=== PATIENT | female | born 1940 | race Caucasian/White ===

== ENCOUNTER 2021-10-24 11:00 | Emergency (ER) | payer MEDICARE, SELFPAY ==
[2021-10-24 11:08] VITALS: BP 113/59; PULSE 90; RESP 20; TEMP 36.2; O2SAT 97; BMI 39.3
--- NOTE | 2021-10-24 11:16 | DI.RAD.S_ITS ---
PROCEDURE: XR KNEE RT 3V INDICATIONS: pain TECHNIQUE: 3 views of the knee were acquired. COMPARISON: None. FINDINGS: Bones: Total knee arthroplasty. No fractures or dislocations. No suspicious bony lesions. Soft tissues: Moderate joint effusion. Vascular calcifications consistent with atherosclerosis. IMPRESSION: 1. No acute osseous abnormalities. 2. Total knee arthroplasty. 3. Moderate knee joint effusion. 4. Severe atherosclerosis. Dictated by: Jarocho Tee M.D. on 10/24/2021 at 12:29 Approved by: Jarocho Tee M.D. on 10/24/2021 at 12:30
--- NOTE | 2021-10-24 13:53 | DI.US.S_ITS ---
PROCEDURE: US PERIPH VENOUS LOW EXTREM RT INDICATIONS: C/F dvt, HX a fib, DVT left leg TECHNIQUE: Real-time imaging, as well as color and pulse Doppler interrogation, were performed of the lower extremity deep veins from the inguinal ligament to the popliteal fossa. COMPARISON: None. FINDINGS: The common femoral, femoral and popliteal veins are normally compressible, and free of intraluminal thrombus. The right femoral vein appears narrowed, however. Color and pulse Doppler demonstrate normal phasic intraluminal flow. There is normal augmentation response to distal compression maneuver. This study is limited by body habitus. IMPRESSION: Limited study demonstrating no gianluca findings of right lower extremity deep venous thrombosis. Dictated by: Marques Ames M.D. on 10/24/2021 at 14:14 Approved by: Marques Ames M.D. on 10/24/2021 at 14:15
--- NOTE | 2021-10-24 14:08 | ED_ITS ---
HPI - Extremity Problem <Alannah Oliverio Goss [facility] - Last Filed: 10/24/21 19:10> General Chief complaint: Extremity Problem,Nontraumatic Stated complaint: Right leg, pain, can't stand Time Seen by Provider: 10/24/21 13:39 Source: patient and other Mode of arrival: Family Vehicle History of Present Illness HPI Narrative: This is an 80-year-old female with history of atrial fibrillation, CHF, diabetes, lymphoma, obesity, hypertension who is not on anticoagulants and presents to the emergency department for worsening right leg pain which started yesterday. Patient states that she can barely bear any weight on her leg because it is so painful. She endorses her lower extremities are swollen at baseline her left is typically greater than right, she has weeping edema in her left lower extremity, her skin is taut, edematous and pitting in her lower extremities. She denies any open wounds, she denies any recent fever, fatigue, erythema or tender area. Patient states that her whole right leg is painful when she bears weight or attempts to walk on it starting in her mid thigh above her knee. Patient endorses a history bilateral knee pain. She denies any sensation of imbalance or unstable joint. She is insulin-dependent diabetic, states that she typically takes bumetanide for her swelling in her legs. States that she used to see [facility] air [facility] and she is pending her [address]. Rios on November 24. She states that she takes a baby aspirin daily, she goes to [facility] in [place] for prescriptions. She states that her pain is why she came in today and she denies any shortness of breath, chest pain, palpitations, orthopnea, or significant shortness of breath with exertion. Related Data Home Medications Medication Instructions Recorded Confirmed aspirin 81 mg tablet,delayed 81 mg PO QAM 10/24/21 10/24/21 release (Adult Low Dose Aspirin) bumetanide 2 mg tablet 2 mg PO TID 10/24/21 10/24/21 calcitriol 0.25 mcg capsule 0.25 mcg PO QAM 10/24/21 10/24/21 fluoxetine 20 mg capsule 20 mg PO BID 10/24/21 10/24/21 insulin NPH isoph U-100 human 100 20 unit SUBCUT BID 10/24/21 10/24/21 unit/mL (3 mL) subcutaneous pen (Novolin N Flexpen) metoprolol tartrate 100 mg tablet 100 mg PO BID 10/24/21 10/24/21 tramadol 50 mg tablet 50 mg PO BID PRN Pain (Scale Score 10/24/21 10/24/21 7-10) Previous Rx's Medication Instructions Recorded diclofenac sodium 1 % topical gel 4 g topical QID #100 grams 10/24/21 mupirocin 2 % topical ointment 1 applic topical BID PRN open 10/24/21 areas of skin #15 grams Allergies Allergy/AdvReac Type Severity Reaction Status Date / Time morphine Allergy Rash Verified 10/24/21 11:14 Review of Systems <YING Huitron - Last Filed: 10/24/21 19:10> Review of Systems Narrative: General: denies fever, chills, fatigue or recent illness Head/Neck: denies headache, neck pain Eyes: denies visual changes, eye pain Cardio: denies chest pain, palpitations, endorses lower extremity edema left greater than right but states is chronic. Respiratory: denies shortness of breath, cough GI: denies abdominal pain, nausea, vomiting, or diarrhea : denies dysuria, hematuria or flank pain MSK: denies new joint pain, muscle weakness or swelling Skin: denies rash, itching or wound Neuro: Endorses numbness and tingling in her toes which is new for her, Patient History <YING Huitron - Last Filed: 10/24/21 19:10> Medical History Afib CHF (congestive heart failure) Diabetes DVT (deep venous thrombosis) Lymphoma Social History Smoking Status: Former smoker Smoking Status: Former smoker tobacco type: cigarettes alcohol intake frequency: 0-2 drinks per day Substance Use Type: does not use Exam <YING Huitron - Last Filed: 10/24/21 19:10> Narrative Exam Narrative: Independently reviewed vitals signs and nursing notes. General: cooperative, comfortable, in no acute distress, well groomed, obese, lower extremities are elevated being is present at the left lower extremity Head: atraumatic, symmetrical facial expressions Neck: supple Eyes: equal round and reactive, EOMI, conjunctiva normal Nose: nares patent, no rhinorrhea Mouth/Throat: moist mucus membranes Cardiovascular: regular rate and rhythm, significant edema in her bilateral lower extremities without any erythema, warm extremities PT and DP pulses are palpable in bilateral feet with brisk cap refill Respiratory: normal effort, able to speak in complete sentences, no audible wheezing, stridor, or rales. No retractions or tachypnea. GI: abdomen soft, nontender to palpation, nondistended, no masses, no exquisite tenderness with exam, without guarding or rebound. MSK: moves all extremities, neurovascularly intact, no weakness, normal tone, edematous lower extremities, right knee pain with ambulation and bearing weight. No tenderness over MCL or LCL, no visible signs of trauma. Skin: brisk capillary refill, no rash, no erythema, pitting edema in bilateral lower extremities, weeping out of abrasion to the left harrington. Neuro: normal speech and cognition, A&O x3 Psych: mental status is grossly normal, congruent mood, normal affect, pleasant and cooperative Initial Vital Signs Initial Vital Signs: Vital Signs Temperature 97.1 F L 10/24/21 11:08 Pulse Rate 90 10/24/21 11:08 Respiratory Rate 20 10/24/21 11:08 Blood Pressure 113/59 L 10/24/21 11:08 Pulse Oximetry 97 10/24/21 11:08 Oxygen Delivery Method 10/24/21 11:08 <Katina Marquez DO - Last Filed: 10/30/21 21:42> Initial Vital Signs Initial Vital Signs: Vital Signs Temperature 97.1 F L 10/24/21 11:08 Pulse Rate 90 10/24/21 11:08 Respiratory Rate 20 10/24/21 11:08 Blood Pressure 113/59 L 10/24/21 11:08 Pulse Oximetry 97 10/24/21 11:08 Oxygen Delivery Method 10/24/21 11:08 Course <YING Huitron - Last Filed: 10/24/21 19:10> Orders Ordered: Discontinued Medications Tramadol HCl (Tramadol 50 Mg Tablet) 50 mg PO NOW ONE Stop: 10/24/21 14:58 Last Admin: 10/24/21 15:34 Dose: 50 mg Documented By: AUDIE Vital Signs Vital signs: Vital Signs - 8 hr 10/24/21 11:08 10/24/21 16:34 10/24/21 15:00 Temperature 97.1 F L Pulse Rate 90 78 Pulse Rate [Bilateral Dorsalis Pedis] 77 Respiratory Rate 20 18 Blood Pressure 113/59 L 146/78 H Pulse Oximetry 97 98 Oxygen Delivery Method Room Air Room Air <Katina Marquez DO - Last Filed: 10/30/21 21:42> Orders Ordered: Discontinued Medications Tramadol HCl (Tramadol 50 Mg Tablet) 50 mg PO NOW ONE Stop: 10/24/21 14:58 Last Admin: 10/24/21 15:34 Dose: 50 mg Documented By: AUDIE Vital Signs Vital signs: Vital Signs - 8 hr 10/24/21 11:08 10/24/21 16:34 10/24/21 15:00 Temperature 97.1 F L Pulse Rate 90 78 Pulse Rate [Bilateral Dorsalis Pedis] 77 Respiratory Rate 20 18 Blood Pressure 113/59 L 146/78 H Pulse Oximetry 97 98 Oxygen Delivery Method Room Air Room Air MDM - Extremity (Nontraumatic) <YING Huitron - Last Filed: 10/24/21 19:10> Lab Data Result diagrams: 10/24/21 15:40 10/24/21 15:40 Labs: Lab Results 10/24/21 10/24/21 10/24/21 Range/Units 15:40 15:40 15:40 WBC 7.1 (4.5-11.0) X10^3/uL RBC 3.91 L (4.0-5.2) X10^6/uL Hgb 12.4 (12.0-16.0) g/dL Hct 36.3 (36-46) % MCV 92.8 (80-100) fL MCH 31.6 (26-34) PG MCHC 34.1 (30-36) % RDW 13.2 (11.6-14.8) % Plt Count 185 (150-400) X10^3/uL Neut % (Auto) 68.1 (50-75) % Lymph % (Auto) 20.3 L (25-40) % Eddy % (Auto) 7.7 (3-14) % Eos % (Auto) 3.1 (2-4) % Baso % (Auto) 0.8 (0-2) % Neut # (Auto) 4800 (6703-8236) /uL Lymph # (Auto) 1400 (0702-1673) /uL Eddy # (Auto) 500 (0-900) /uL Eos # (Auto) 200 (0-450) /uL Baso # (Auto) 100 (0-100) /uL PT 12.7 (10.1-12.7) SECONDS INR 1.1 (0.9-1.3) D-Dimer 462 H (<230) ng/mL Sodium 134 L (137-145) mmol/L Potassium 4.5 (3.4-5.1) mmol/L Chloride 98 (98-107) mmol/L Carbon Dioxide 30 (22-32) mmol/L BUN 25 H (7-17) mg/dL Creatinine 1.37 H (0.52-1.04) mg/dL Estimated GFR 39 L (>60) mL/min BUN/Creatinine Ratio 18.2 (6-22) Glucose 252 H (80-110) mg/dL Calcium 9.0 (8.4-10.2) mg/dL Total Bilirubin 0.6 (0.2-1.3) mg/dL AST 25 (14-36) IU/L ALT 18 (<35) IU/L Alkaline Phosphatase 116 (38-126) U/L NT-Pro-B Natriuret Pep 1800 H (<450) pg/mL Total Protein 6.3 (6.3-8.2) g/dL Albumin 3.8 (3.5-5.0) g/dL Globulin 2.5 (1.7-4.1) g/dL Albumin/Globulin Ratio 1.5 (1.0-2.8) Procalcitonin 0.05 (<0.5) ng/mL Imaging Data Extremity x-ray #1: Radiologist's Impression: PROCEDURE:? XR KNEE RT 3V ? INDICATIONS:? pain ? TECHNIQUE:? 3 views of the knee were acquired.? ? COMPARISON:? None. ? FINDINGS:? ? Bones:? Total knee arthroplasty.? No fractures or dislocations.? No suspicious bony lesions.? ? Soft tissues:? Moderate joint effusion.? Vascular calcifications consistent with atherosclerosis.? ? ? IMPRESSION:? ? 1. No acute osseous abnormalities. 2. Total knee arthroplasty. 3. Moderate knee joint effusion. 4. Severe atherosclerosis.? ? Dictated by: Jarocho Tee M.D. on 10/24/2021 at 12:29 ? ? Approved by: Jarocho Tee M.D. on 10/24/2021 at 12:30 ? US - DVT: Radiologist's Impression: PROCEDURE:? US PERIPH VENOUS LOW EXTREM RT ? INDICATIONS:? C/F dvt, HX a fib, DVT left leg ? TECHNIQUE:? Real-time imaging, as well as color and pulse Doppler interrogation, were performed of the lower extremity deep veins from the inguinal ligament to the popliteal fossa.? ? COMPARISON:? None. ? FINDINGS:? The common femoral, femoral and popliteal veins are normally compressible, and free of intraluminal thrombus.? The right femoral vein appears narrowed, however.? Color and pulse Doppler demonstrate normal phasic intraluminal flow.? There is normal augmentation response to distal compression maneuver.? ? This study is limited by body habitus. ?? IMPRESSION:? Limited study demonstrating no gianluca findings of right lower ex tremity deep venous thrombosis. ?? Dictated by: Marques Ames M.D. on 10/24/2021 at 14:14 ? ? Approved by: Marques Ames M.D. on 10/24/2021 at 14:15 ? ECG Data Interpretation: EKG independently reviewed by Dr. Marquez and reveals atrial fibrillation at 75 bpm with leftward axis and normal intervals. No STEMI, ST segment changes, arrhythmia, or acute ischemic changes. MDM Narrative Medical decision making narrative: This is an 80-year-old female with past history of CHF, atrial fibrillation, prior DVT in left upper leg, she is not anticoagulated, history also includes lymphoma, hypertension, diabetes type 2 and is insulin dependent morbid obesity, who presents to the emergency department complaining of right leg pain worsening over the last two days. She has a history of bilateral lower extremity edema, she does not have any prior labs within our system to review, she states she is pending a new patient appointment with Dr. Fairchild November 24 and her previous provider Dr Gama is no longer seeing patients. Patient takes baby aspirin daily, bumetanide, fluoxetine, NPH insulin, metoprolol, and tramadol for her pain. States that tramadol is not adequate for her pain but she states she is allergic to all opioids and other medications. Patient is concerned about a possible blood clot. States that she has a history of osteoarthritis. Initially, nursing placed an order for right knee x-ray, this shows no acute osseous abnormalities, total knee arthroplasty, moderate knee joint effusion, and severe atherosclerosis. A vascular ultrasound was ordered, it took a long time for this to be completed but eventually was and did not show any gianluca findings of right lower extremity deep venous thrombosis. She has significant edema of her bilateral lower extremities so there is body habitus study limitations. Patient had concerning swelling on exam, she did not come in for a CHF exacerbation and denies any shortness of breath, palpitations, chest pain, pleurisy, orthopnea, shortness of breath with exertion but she states her bilateral lower extremities are more swollen than usual, and her pain is diffuse in her right lower extremity. I opted to do lab work for her since her primary care appointment is not for one more month, and she does not have any lab work in the system. Patient wishes to discharge home prior to resulting lab work, discussed that there may be important. Patient states understanding. When her lab work resulted, pertinent findings are: No leukocytosis or anemia, her D- dimer is 462. And is not clinically significant when age corrected. Age-Adjusted D-dimer for Venous Thromboembolism (VTE) from [email or web address] on 10/24/2021 All calculations should be rechecked by clinician prior to use RESULT SUMMARY: 820 ?g/L Age-adjusted D-dimer cutoff, FEU VTE unlikely Reported D-dimer is less than or equal to cutoff; consider alternative diagnosis INPUTS: Age ?> 80 years D-dimer level reported by lab ?> 462 ?g/L D-dimer unit type ?> 1 = FEU (unadjusted cutoff typically ~500 or 0.50) Sodium is 134, she does not have any neuro deficits on my exam, her creatinine is elevated at 1.37, BUN is 25, GFR is 39, glucose is elevated at 252 but she is diabetic and she has been in the emergency department for at least 6 hours. Her BNP came back elevated at 1800, this is likely part of why her lower extremities are edematous. Procalcitonin is 0.05, she did not have any significant erythema over bilateral lower extremities, no signs of cellulitis, no open wounds but she does have a small abrasion on the left harrington that is weeping. Does not have any surrounding erythema or purulence discharge. I encouraged patient to call the primary care office and follow-up with her primary care provider and ask for a sooner appointment due to the swelling in her lower extremities. She had not taken her diuretic today, encouraged her to go home and ensure that she gets her three doses of that and to return to the emergency department if she gets any worse or get a sooner appointment at her primary care office. It is notable that her creatinine is elevated, her BNP is elevated, she has an effusion of her right knee joint and worsening right leg pain. I gave her contact information for [facility] so she can follow-up regarding her right knee pain, encouraged her to use an Eusebio bandage for her right knee, her body habitus prevents right knee immobilizer working very effectively, I did encourage and compression stockings for lower extremities to help mitigate some of this edema and frequent elevation of her lower extremities. I gave her a prescription for diclofenac gel for topical application to her right knee, she states that Tylenol is helpful for her pain at home in addition to the tramadol and encouraged her to continue taking the same regimen. This is likely a CHF exa cerbation but she does shortness of breath tachypnea or tachycardia, she is currently in atrial fibrillation per EKG with left axis deviation but no ST changes. <Katina Marquez, - Last Filed: 10/30/21 21:42> Lab Data Labs: Lab Results 10/24/21 10/24/21 10/24/21 Range/Units 15:40 15:40 15:40 WBC 7.1 (4.5-11.0) X10^3/uL RBC 3.91 L (4.0-5.2) X10^6/uL Hgb 12.4 (12.0-16.0) g/dL Hct 36.3 (36-46) % MCV 92.8 (80-100) fL MCH 31.6 (26-34) PG MCHC 34.1 (30-36) % RDW 13.2 (11.6-14.8) % Plt Count 185 (150-400) X10^3/uL Neut % (Auto) 68.1 (50-75) % Lymph % (Auto) 20.3 L (25-40) % Eddy % (Auto) 7.7 (3-14) % Eos % (Auto) 3.1 (2-4) % Baso % (Auto) 0.8 (0-2) % Neut # (Auto) 4800 (0579-0908) /uL Lymph # (Auto) 1400 (8771-0178) /uL Eddy # (Auto) 500 (0-900) /uL Eos # (Auto) 200 (0-450) /uL Baso # (Auto) 100 (0-100) /uL PT 12.7 (10.1-12.7) SECONDS INR 1.1 (0.9-1.3) D-Dimer 462 H (<230) ng/mL Sodium 134 L (137-145) mmol/L Potassium 4.5 (3.4-5.1) mmol/L Chloride 98 (98-107) mmol/L Carbon Dioxide 30 (22-32) mmol/L BUN 25 H (7-17) mg/dL Creatinine 1.37 H (0.52-1.04) mg/dL Estimated GFR 39 L (>60) mL/min BUN/Creatinine Ratio 18.2 (6-22) Glucose 252 H (80-110) mg/dL Calcium 9.0 (8.4-10.2) mg/dL Total Bilirubin 0.6 (0.2-1.3) mg/dL AST 25 (14-36) IU/L ALT 18 (<35) IU/L Alkaline Phosphatase 116 (38-126) U/L NT-Pro-B Natriuret Pep 1800 H (<450) pg/mL Total Protein 6.3 (6.3-8.2) g/dL Albumin 3.8 (3.5-5.0) g/dL Globulin 2.5 (1.7-4.1) g/dL Albumin/Globulin Ratio 1.5 (1.0-2.8) Procalcitonin 0.05 (<0.5) ng/mL Discharge Plan Departure Patient Disposition: Home Clinical Impression: Bilateral edema of lower extremity, Effusion of knee joint right, Elevated brain natriuretic peptide (BNP) level, Creatinine elevation Instructions: Heart Failure, DI for Knee Effusion, Edema Activity Restrictions/Additional Instructions: *You have been diagnosed with significant lower extremity edema which is concerning for a CHF exacerbation. Please call Dr. Oneill's doctor's office and ask if you can move your appointment up for follow-up from your ER visit today. I will call you later today if your lab work is concerning for something you need to make a change on at home. Please continue taking your diuretic, do not forget any doses of this, please ensure that you get your full three doses today. Stay hydrated, elevate your lower extremities often, wear compression stockings as tolerated, you may wrap your knee with a thick Eusebio bandage to help provide some stability while walking. Please follow-up with your doctor as soon as you are able, return to the emergency department if your condition gets any worse or if you develop shortness of breath, difficulty breathing, chest pain or palpitations. *What to do: *Please continue to take your regular medications as directed. [x ] New medication prescriptions sent to your pharmacy: [[facility] ] [ ] New medication written as a paper prescription [ ] No new medications given *Please follow up with your primary care provider in 2-3 days, call for an appointment. Let them know you were seen in the Emergency Department and that we asked that you be seen for follow-up. We will electronically transmit a record of today's note if your PCP is in our system *If you do not have a primary care provider please contact [phone] to establish care with one of [facility] primary care providers. *Return to Emergency Department if you should have any new, worsening or conc erning symptoms, such as [fever greater than 101F, chills, worsening pain, persistent vomiting or other bothersome symptoms] Prescriptions: New diclofenac sodium 1 % gel 4 g topical QID Qty: 100 0RF Rx Instructions: Apply to area of pain up to 4 times daily mupirocin 2 % ointment 1 applic topical BID PRN (Reason: open areas of skin) Qty: 15 0RF No Action bumetanide 2 mg tablet 2 mg PO TID Label Comments: Take 3 metoprolol tartrate 100 mg tablet 100 mg PO BID Label Comments: Take 1 tablet by mouth twice a day aspirin [Adult Low Dose Aspirin] 81 mg tablet,delayed release (DR/EC) 81 mg PO QAM fluoxetine 20 mg capsule 20 mg PO BID Label Comments: Pt states she takes 1 tab bid calcitriol 0.25 mcg capsule 0.25 mcg PO QAM Novolin N Flexpen 100 unit/mL (3 mL) insulin pen 20 unit SUBCUT BID tramadol 50 mg tablet 50 mg PO BID PRN (Reason: Pain (Scale Score 7-10)) Label Comments: Take 1 tablet by mouth twice a day as needed for pain Referrals: [facility] [Provider Group] Adonay Fairchild MD [Non-Staff] - Elsie Gama PA-C [Primary Care Provider] - Visit Report Forms: Patient Portal/API <Katina Marquez DO - Last Filed: 10/30/21 21:42> Cosign ED Attending Juliusature Attestation: I was immediately available in the department for consultation. Documentation has been reviewed.
[2021-10-24 15:00] VITALS: PULSE 77
[2021-10-24] MEDS: TRAMADOL 50 MG TABLET PO (15:34)
[2021-10-24 16:32] LABS: Add Manual Diff / Slide Review NO; Basophils Absolute Auto 100 /uL (0-100); Basophils Percent Auto 0.8 % (0-2); Eosinophils Absolute Auto 200 /uL (0-450); Eosinophils Percent Auto 3.1 % (2-4); Hematocrit 36.3 % (36-46); Hemoglobin 12.4 g/dL (12.0-16.0); Lymphocytes Absolute Auto 1400 /uL (1100-4500); Lymphocytes Percent Auto 20.3 % (25-40); Mean Corpuscular HGB Conc 34.1 % (30-36); Mean Corpuscular Hemoglobin 31.6 PG (26-34); Mean Corpuscular Volume 92.8 fL (80-100); Monocytes Absolute Auto 500 /uL (0-900); Monocytes Percent Auto 7.7 % (3-14); Neutrophils Absolute Auto 4800 /uL (1500-7000); Neutrophils Percent Auto 68.1 % (50-75); Platelet Count 185 X10^3/uL (150-400); Red Blood Cell Count 3.91 X10^6/uL (4.0-5.2); Red Cell Distribution Width 13.2 % (11.6-14.8); White Blood Cell Count 7.1 X10^3/uL (4.5-11.0)
[2021-10-24 16:34] VITALS: BP 146/78; PULSE 78; RESP 18; O2SAT 98
[2021-10-24 16:38] LABS: Alanine Aminotransferase 18 IU/L (<35); Albumin 3.8 g/dL (3.5-5.0); Albumin Globulin Ratio 1.5 (1.0-2.8); Alkaline Phosphatase 116 U/L (38-126); Aspartate Aminotransferase 25 IU/L (14-36); BUN Creatinine Ratio 18.2 (6-22); Bilirubin Total 0.6 mg/dL (0.2-1.3); Blood Urea Nitrogen 25 mg/dL (7-17); Carbon Dioxide 30 mmol/L (22-32); Chloride 98 mmol/L (98-107); Estimated Glomerular Filt Rate 39 mL/min (>60); Globulin 2.5 g/dL (1.7-4.1); Glucose 252 mg/dL (80-110); HEMOLYSIS < 15 (0-50); Potassium 4.5 mmol/L (3.4-5.1); Sodium 134 mmol/L (137-145); Total Protein 6.3 g/dL (6.3-8.2)
[2021-10-24 16:46] LABS: NT-proBNP (BNP-Adult 18+) 1800 pg/mL (<450)
[2021-10-24 16:54] LABS: Procalcitonin 0.05 ng/mL (<0.5)
[2021-10-24 16:58] LABS: INR 1.1 (0.9-1.3); Prothrombin Time 12.7 SECONDS (10.1-12.7)
[2021-10-24 17:05] LABS: D Dimer 462 ng/mL (<230)
== END 2021-10-24 16:36 | disposition home or self-care (01) ==
PROVIDERS: Emergency Provider Nurse Practitioner Critical Care Medicine; PCP Student in an Organized Health Care Education/Training Program
DX: R60.0 Localized edema (principal); M25.461 Effusion, right knee; R79.89 Other specified abnormal findings of blood chemistry; Z79.82 Long term (current) use of aspirin
CPT/HCPCS: 36415; 73562; 80053; 83880; 84145; 85025; 85379; 85610; 93005; 93971; 99284

== ENCOUNTER 2021-11-02 20:23 | Emergency (ER) | payer MEDICARE, SELFPAY ==
[2021-11-02 20:35] VITALS: BP 149/91; PULSE 96; RESP 24; TEMP 36.9; O2SAT 97
[2021-11-02] MEDS: FLUORESCEIN 1 MG STRIP EYE-BOTH (23:59)
[2021-11-02] MEDS: PROPARACAINE 0.5% OPHTH SOL 1 DROPS EYE-RIGHT (23:59)
--- NOTE | 2021-11-03 01:05 | ED.SKABFB ---
HPI - Skin/Abscess/Foreign Bdy General Chief complaint: Skin/Abscess/Foreign Body Stated complaint: Right eye injury Time Seen by Provider: 11/02/21 23:45 Source: patient and family Mode of arrival: Ambulatory History of Present Illness HPI narrative: Patient is a 80-year-old female who presents with right eye drainage and irritation. She states she feels sleep with her glasses on 2 nights ago she does have a cup of her right eyelid which is healing and some other sores on her forehead. Her eye is draining gross discharge. She says it does not hurt unless you touch it. No fevers or chills. She is being followed and seen by primary care provider her multiple other issues. Related Data Home Medications Medication Instructions Recorded Confirmed aspirin 81 mg tablet,delayed 81 mg PO QAM 10/24/21 10/24/21 release (Adult Low Dose Aspirin) bumetanide 2 mg tablet 2 mg PO TID 10/24/21 10/24/21 calcitriol 0.25 mcg capsule 0.25 mcg PO QAM 10/24/21 10/24/21 fluoxetine 20 mg capsule 20 mg PO BID 10/24/21 10/24/21 insulin NPH isoph U-100 human 100 20 unit SUBCUT BID 10/24/21 10/24/21 unit/mL (3 mL) subcutaneous pen (Novolin N Flexpen) metoprolol tartrate 100 mg tablet 100 mg PO BID 10/24/21 10/24/21 tramadol 50 mg tablet 50 mg PO BID PRN Pain (Scale Score 10/24/21 10/24/21 7-10) Previous Rx's Medication Instructions Recorded diclofenac sodium 1 % topical gel 4 g topical QID #100 grams 10/24/21 mupirocin 2 % topical ointment 1 applic topical BID PRN open 10/24/21 areas of skin #15 grams erythromycin 5 mg/gram (0.5 %) eye 0.5 inch EYE-RIGHT Q4HRWA 7 days 11/03/21 ointment #3.5 grams Allergies Allergy/AdvReac Type Severity Reaction Status Date / Time morphine Allergy Rash Verified 10/24/21 11:14 Review of Systems Review of Systems Narrative: GENERAL: Denies chills,fever HEENT: see HPI RESPIRATORY: Denies dyspnea, cough, wheezing CARDIOVASCULAR: Denies chest pain, palpitations GASTROINTESTINAL: Denies nausea, vomiting MUSCULOSKELETAL: Denies extremity pain, injury SKIN: No rash, no laceration, no pruritus NEUROLOGIC: Denies weakness, dizziness, headache, numbness 8 point review of systems is negative except for those stated above and HPI Patient History Medical History Afib CHF (congestive heart failure) Diabetes DVT (deep venous thrombosis) Lymphoma Social History Smoking Status: Former smoker Smoking Status: Former smoker tobacco type: cigarettes alcohol intake frequency: 0-2 drinks per day Substance Use Type: does not use Exam Initial Vital Signs Initial Vital Signs: Vital Signs Temperature 98.5 F 11/02/21 20:35 Pulse Rate 96 H 11/02/21 20:35 Respiratory Rate 24 11/02/21 20:35 Blood Pressure 149/91 H 11/02/21 20:35 Pulse Oximetry 97 11/02/21 20:35 Oxygen Delivery Method 11/02/21 20:35 GENERAL: Pleasant alert 80-year-old female EYES: EOMI,PITO Right eye healing laceration on right eyelid. Obvious gross drainage right eye. Right eye was treated with proparacaine, stained with fluorescein. No dye uptake. No foreign body. CARDIOVASCULAR: peripheral pulses in tact, cap refill <2 sec RESPIRATORY: No respiratory distress, speaks in full sentences without difficulty EXTREMITIES: Normal range of motion, no clubbing or edema. Neurovascularly intact NEUROLOGICAL: Cranial nerves II through XII grossly intact. Normal gait and speech. SKIN: Scabbed over lesion right periorbital area there are 2 no vesicles Course Orders Ordered: Discontinued Medications Erythromycin (Erythromycin Ophth 1 Gm Oint) 1 applic EYE-BOTH NOW ONE Stop: 11/03/21 01:10 Last Admin: 11/03/21 01:14 Dose: 1 applic Documented By: MADDI Fluorescein Sodium (Fluorescein 1 Mg Strip) 1 mg EYE-BOTH NOW ONE Stop: 11/02/21 23:46 Last Admin: 11/02/21 23:59 Dose: 1 mg Documented By: LC Proparacaine HCl (Proparacaine 0.5% Ophth Helen) 1 drops EYE-RIGHT NOW ONE Stop: 11/02/21 23:46 Last Admin: 11/02/21 23:59 Dose: 1 drops Documented By: LC Vital Signs Vital signs: Vital Signs - 8 hr 11/02/21 20:35 Temperature 98.5 F Pulse Rate 96 H Respiratory Rate 24 Blood Pressure 149/91 H Pulse Oximetry 97 Oxygen Delivery Method Room Air MDM - Skin/Abscess/Foreign Bdy MDM Narrative Medical decision making narrative: Patient does have gross drainage from her eye. She has some mild surrounding erythema but unlikely to be periorbital cellulitis. She has scratch above her eyelid she also has a scratch and a scabbed area over the forehead. She is given antibiotic ointment for the eye itself to help with the drainage. I think that this will actually help the other areas as well. Considerations for differential included shingles however there does not appear to be vesicles. This is extremely isolated to the area the INR is an obvious eyelid laceration which is healing. Discharge Plan Departure Patient Disposition: Home Clinical Impression: Conjunctivitis Instructions: Conjunctivitis Activity Restrictions/Additional Instructions: *You have been diagnosed with right eye conjunctivitis *What to do: At this time do not believe this to be shingles. Wound should start healing apply antibiotic ointment to. White ointment to eye as directed *Continue to take medications as directed Erythromycin ointment in right eye every 4 hours while awake--> S[facility] IN [place] *Follow up with your primary care provider in 2-3 days or call [phone] *Return to ER if you should have increasing redness pain rash the or any new, worsening or concerning symptoms Prescriptions: New erythromycin 5 mg/gram (0.5 %) ointment 0.5 inch EYE-RIGHT Q4HRWA 7 Days Qty: 3.5 0RF No Action bumetanide 2 mg tablet 2 mg PO TID Label Comments: Take 3 metoprolol tartrate 100 mg tablet 100 mg PO BID Label Comments: Take 1 tablet by mouth twice a day aspirin [Adult Low Dose Aspirin] 81 mg tablet,delayed release (DR/EC) 81 mg PO QAM fluoxetine 20 mg capsule 20 mg PO BID Label Comments: Pt states she takes 1 tab bid calcitriol 0.25 mcg capsule 0.25 mcg PO QAM Novolin N Flexpen 100 unit/mL (3 mL) insulin pen 20 unit SUBCUT BID tramadol 50 mg tablet 50 mg PO BID PRN (Reason: Pain (Scale Score 7-10)) Label Comments: Take 1 tablet by mouth twice a day as needed for pain diclofenac sodium 1 % gel 4 g topical QID Qty: 100 0RF Rx Instructions: Apply to area of pain up to 4 times daily mupirocin 2 % ointment 1 applic topical BID PRN (Reason: open areas of skin) Qty: 15 0RF Referrals: Elsie Gama PA-C [Primary Care Provider] - Visit Report Forms: Patient Portal/API
[2021-11-03] MEDS: ERYTHROMYCIN OPHTH 1 GM OINT 1 APPLIC EYE-BOTH (01:14)
== END 2021-11-03 01:20 | disposition home or self-care (01) ==
PROVIDERS: Emergency Provider Emergency Medicine; PCP Student in an Organized Health Care Education/Training Program
DX: H10.9 Unspecified conjunctivitis (principal)
CPT/HCPCS: 99282